=== PATIENT | female | born 1955 | race Two or more races ===

== ENCOUNTER 2025-08-23 07:39 | Outpatient (CLI) | payer OTHER ==
--- NOTE | 2025-08-23 09:49 | DVH ---
CLINICAL INFORMATION: Status post laparoscopic cholecystectomy. TECHNIQUE: 5.5 mCi of Choletec were administered intravenously. Images of the upper abdomen were obtained at multiple intervals up to a total time of 60 minutes. COMPARISON: None FINDINGS: No findings are seen to suggest bile leak status post cholecystectomy. There is prompt excretion of activity from the biliary ductal system into the small bowel. There is no evidence of acute cholecystitis. IMPRESSION: No findings are seen to suggest bile leak.
== END 2025-08-23 17:00 | disposition home or self-care (01) ==
LOC: XYW 07:39
PROVIDERS: ATTEND Nurse Practitioner
DX: Z48.01 Encounter for change or removal of surgical wound dressing (principal); Z90.49 Acquired absence of other specified parts of digestive tract
CPT/HCPCS: 78226; A9537